=== PATIENT | male | born 1970 | race Caucasian/White ===

== ENCOUNTER 2016-07-31 11:01 | Emergency (ER) ==
[2016-07-31] MEDS ORDERED: ASPIRIN PO STA (11:09)
[2016-07-31] MEDS ORDERED: LOPRESSOR IV ONE (11:11)
[2016-07-31] MEDS ORDERED: LOPRESSOR ONE (11:12)
--- NOTE | 2016-07-31 11:15 | EKG Report ---
Test Performed on : 07/31/2016 11:03:48 AM Test Reason : SVT Blood Pressure : / mmHG Vent. Rate : 139 BPM Atrial Rate : 139 BPM P-R Int : 136 ms QRS Dur : 074 ms QT Int : 272 ms P-R-T Axes : 057 027 070 degrees QTc Int : 413 ms Sinus tachycardia. Septal infarct , age undetermined Abnormal ECG No previous ECGs available Unconfirmed Result
[2016-07-31 11:16] LABS: MANUAL DIFF NEEDED? NO
--- NOTE | 2016-07-31 11:32 | PROVIDER DOCUMENTATION ---
HPI-Cardiac General - General Source: patient - History of Present Illness-Cardiac Onset/Duration: 4 days ago Timing: still present <Chata Jiang - Last Filed: 07/31/16 13:54> <Marcellus Kumar - Last Filed: 07/31/16 15:02> - General Chief Complaint: Palpitations Stated Complaint: SVT Time Seen by Provider: 07/31/16 11:28 Allergies/Adverse Reactions: Patient Allergies Allergy/AdvReac Type Severity Reaction Status Date / Time No Known Allergies Allergy Verified 07/31/16 11:09 Home Medications: Home Medication List Medication Instructions Recorded Confirmed Last Taken Type Metformin HCl [Metformin HCl ER] 500 mg PO BID #60 tab.er.24h 07/31/16 Unknown Rx Metoprolol Succinate 50 mg PO DAILY #30 tab.er.24h 07/31/16 Unknown Rx Ranitidine [Zantac] 150 mg PO DAILY 07/31/16 07/31/16 Unknown History - History of Present Illness-Cardiac Nature of Presenting Problem: 46 year old male presents to the ER with complaint of rapid heart rate. Pt states he has been in a fishing [place] for the last few days with little sleep. Pt states he has a hx of rapid heart rate. Denies chest pain. (Chata Jiang) Review of Systems - Adult - REVIEW OF SYSTEMS - ADULT Constitutional: denies: chills, fever Eyes: reports: no symptoms reported Ears, Nose, Mouth & Throat: reports: no symptoms reported Cardiovascular: reports: palpitations. denies: chest pain Respiratory: reports: no symptoms reported Gastrointestinal: reports: no symptoms reported Genitourinary: reports: no symptoms reported Musculoskeletal: reports: no symptoms reported Integumentary: reports: no symptoms reported Neurological: reports: no symptoms reported Psychiatric: reports: no symptoms reported Endocrine: reports: no symptoms reported Hematologic/Lymphatic: reports: no symptoms reported Allergic/Immunologic: reports: no symptoms reported All Other Systems: Reviewed and Negative <Chata Jaing - Last Filed: 07/31/16 13:54> Past History - Adult - PAST MEDICAL HISTORY-ADULT Review of Records: reports: Nursing Assessment Review, Medications Reviewed - IMMUNIZATION STATUS Childhood Immunizations: See Nurse Assessment Flu Vaccine: See Nurse Assessment <Chata Jiang - Last Filed: 07/31/16 13:54> Physical Exam-General - CONSTITUTIONAL General Appearance: alert, no apparent distress - EYES Eyes: PERRL/EOMI, pink conjunctivae - HEAD, EARS, NOSE, MOUTH & THROAT HENMT: normocephalic/atraumatic, moist mucous membranes - NECK Neck: supple, normal inspection - RESPIRATORY Respiratory: lungs clear, normal breath sounds - CARDIOVASCULAR Cardiovascular: no edema, tachycardia - MUSCULOSKELETAL Back Exam: no CVA tenderness, no vertebral tenderness Extremity: normal range of motion, non-tender - SKIN Integumentary: normal color, warm/dry - NEUROLOGIC Neurologic: grossly normal, no motor/sensory deficits - PSYCHIATRIC Psych/Mental Status: normal mood/affect, normal thought content, normal thought process, oriented x 3 <Chata Jiang - Last Filed: 07/31/16 13:54> Progress - EKG 1 Time of EKG reading by physician:: 11:03 EKG Read and Signed by:: Marcellus Kumar EKG Interpretation (*Must complete 3 of following elements*): Abnormal Rate: 139 Rhythm: sinus tachycardia 2 Time of EKG reading by physician:: 13:24 EKG Read and Signed by:: Marcellus Kumar EKG Interpretation (*Must complete 3 of following elements*): Abnormal Rate: 102 Rhythm: sinus tachycardia [place]: normal <Chata Jiang - Last Filed: 07/31/16 13:54> <Marcellus Kumar - Last Filed: 07/31/16 15:02> - PLAN OF CARE/RESULTS Progress/Plan/Lab Results: Laboratory Tests 07/31/16 07/31/16 07/31/16 11:08 11:08 11:08 WBC RBC Hgb Hct MCV MCH MCHC RDW Std Deviation Plt Count MPV Immature Gran % (Auto) Neut % (Auto) Lymph % (Auto) [place] % (Auto) Eos % (Auto) Baso % (Auto) Immature Gran # (Auto) Neut # (Auto) Lymph # (Auto) [place] # (Auto) Eos # (Auto) Baso # (Auto) PT INR APTT (Factor Assay) D-Dimer Sodium 134 L Potassium 4.2 Chloride 97 L Carbon Dioxide 20 L Anion Gap 16 BUN 8 Creatinine 0.7 Estimated GFR/1.73 m2 > 60 BUN/Creatinine Ratio 11 Glucose 372 H Calculated Osmolality 282 Calcium 9.8 Magnesium 1.9 Total Bilirubin 0.70 AST 25 ALT 23 Alkaline Phosphatase 117 Creatine Kinase 124 Troponin T < 0.010 Ncz-L-Jzjzkhnggeb Pept 59 Total Protein 8.2 Albumin 4.7 Globulin 4.0 Albumin/Globulin Ratio 1.0 TSH 07/31/16 07/31/16 07/31/16 11:08 11:08 11:08 WBC 12.35 H RBC 6.42 H Hgb 18.4 H Hct 52.8 H MCV 82.2 MCH 28.7 MCHC 34.8 RDW Std Deviation 12.7 Plt Count 215 MPV 10.6 H Immature Gran % (Auto) 0.4 Neut % (Auto) 66.1 Lymph % (Auto) 23.7 [place] % (Auto) 7.6 Eos % (Auto) 1.5 Baso % (Auto) 0.7 Immature Gran # (Auto) 0.05 H Neut # (Auto) 8.15 H Lymph # (Auto) 2.93 [place] # (Auto) 0.94 H Eos # (Auto) 0.19 Baso # (Auto) 0.09 PT 13.8 INR 1.03 APTT (Factor Assay) 30.9 D-Dimer Sodium Potassium Chloride Carbon Dioxide Anion Gap BUN Creatinine Estimated GFR/1.73 m2 BUN/Creatinine Ratio Glucose Calculated Osmolality Calcium Magnesium Total Bilirubin AST ALT Alkaline Phosphatase Creatine Kinase Troponin T Usw-D-Oknvaoycllp Pept Total Protein Albumin Globulin Albumin/Globulin Ratio TSH 1.37 07/31/16 11:08 WBC RBC Hgb Hct MCV MCH MCHC RDW Std Deviation Plt Count MPV Immature Gran % (Auto) Neut % (Auto) Lymph % (Auto) [place] % (Auto) Eos % (Auto) Baso % (Auto) Immature Gran # (Auto) Neut # (Auto) Lymph # (Auto) [place] # (Auto) Eos # (Auto) Baso # (Auto) PT INR APTT (Factor Assay) D-Dimer 0.30 Sodium Potassium Chloride Carbon Dioxide Anion Gap BUN Creatinine Estimated GFR/1.73 m2 BUN/Creatinine Ratio Glucose Calculated Osmolality Calcium Magnesium Total Bilirubin AST ALT Alkaline Phosphatase Creatine Kinase Troponin T Tsj-V-Qeldndgepvj Pept Total Protein Albumin Globulin Albumin/Globulin Ratio TSH Vital Signs - 24 hr 07/31/16 11:03 Pulse Rate 140 H Respiratory 20 Rate Blood Pressure 154/94 O2 Sat by Pulse 98 Oximetry (Chata Jiang) Departure <Chata Jiang - Last Filed: 07/31/16 13:54> - Departure Time of Disposition Order: 14:59 Certified Medical Emergency: Emergent <Marcellus Kumar - Last Filed: 07/31/16 15:02> - Departure DIAGNOSIS: Inappropriate sinus tachycardia Diabetes mellitus Qualifiers: Diabetes mellitus type: type 2 Diabetes mellitus complication status: with hyperglycemia Disposition: HOME 01 Condition: Stable Additional Instructions: ED Follow Up Instructions: You have been treated by a care provider in the Emergency Department. These instructions are being provided to you so you can have an understanding of how to care for yourself upon discharge. Upon discharge from the Emergency Department, you are responsible for making arrangements for follow-up care by a physician of your choice. Take all prescribed medications as directed. Return to the Emergency Department immediately for any new or worsening symptoms. You may call the Physician Referral phone number at [phone] to obtain a list of Physicians who are taking new patients. Prescriptions: Metformin HCl [Metformin HCl ER] 500 mg PO BID #60 tab.er.24h Metoprolol Succinate 50 mg PO DAILY #30 tab.er.24h Referrals: None,PCP [Primary Care Provider] - Attestation - Scribe Verification/Attestation Scribe:: Chtaa Jiang Acting as Scribe for:: Marcellus Kumar Scribe documention review:: This chart was documented by a scribe and accurately reflects the service the provider performed and the decisions made by the provider. <Chata Jiang - Last Filed: 07/31/16 13:54> Physician Attestation
[2016-07-31 11:33] LABS: BASO% 0.7 % (0.0-0.8); EOS# 0.19 X1000 (0.0-0.7); EOS% 1.5 % (0.0-10.0); HEMATOCRIT 52.8 % (42.0-52.0); HEMOGLOBIN 18.4 g/dL (14.0-18.0); IMM GRAN# 0.05 X1000 (0.0-0.04); IMM GRAN% 0.4 % (0.0-0.5); LYMPH# 2.93 X1000 (1.2-3.4); LYMPH% 23.7 % (20.5-51.1); MCH 28.7 PG (27-31); MCHC 34.8 g/dL (33-37); MCV 82.2 FL (81-99); MONO# 0.94 X1000 (0.11-0.59); MONO% 7.6 % (1.7-9.3); MPV 10.6 FL (7.4-10.4); NEUT% 66.1 % (42.2-75.2); PLT 215 X1000 (130-400); RBC 6.42 XMIL (4.7-6.1)
[2016-07-31 11:42] LABS: INR 1.03 (0.86-1.15); PROTIME 13.8 Seconds (12.1-15.5)
[2016-07-31 11:43] LABS: PTT PL 30.9 Seconds (22.6-43.9)
[2016-07-31 11:47] LABS: AGAP 16; ALBUMIN 4.7 g/dL (3.5-5.0); ALKALINE PHOSPHATASE 117 U/L (32-122); BUN 8 mg/dL (8-22); CALCIUM 9.8 mg/dL (8.8-10.2); CHLORIDE 97 mmol/L (98-107); CK PROFILE 124 U/L (24-204); COSMO 282; GOT 25 U/L (10-34); GPT 23 U/L (10-44); MAGNESIUM 1.9 mg/dL (1.5-2.7); POTASSIUM 4.2 mmol/L (3.5-5.1); SODIUM 134 mmol/L (136-145); TCO2 20 mmol/L (25-35); TOTAL PROTEIN 8.2 g/dL (6.3-8.3)
--- NOTE | 2016-07-31 13:34 | EKG Report ---
Test Performed on : 07/31/2016 1:24:44 PM Test Reason : repeat Blood Pressure : / mmHG Vent. Rate : 102 BPM Atrial Rate : 102 BPM P-R Int : 162 ms QRS Dur : 078 ms QT Int : 334 ms P-R-T Axes : 059 012 056 degrees QTc Int : 435 ms Sinus tachycardia. Anteroseptal infarct (cited on or before 31-JUL-2016) Abnormal ECG When compared with ECG of 31-JUL-2016 11:03, (Unconfirmed) No significant change was found Unconfirmed Result
[2016-07-31 15:10] VITALS: BP 133/61
--- NOTE | 2016-07-31 15:34 | Diag Imaging Result Document ---
PROCEDURE NAME: CHEST-2 VIEWS - 07/31/2016 CHEST, 2 VIEWS: COMPARISON: No comparison exam. FINDINGS: Heart size is normal. There are small granulomas and calcified hilar lymph nodes from old granulomatous disease. There is no consolidation, vascular congestion, pleural effusion, or pneumothorax identified. There is thoracic spondylosis noted. IMPRESSION: No evidence of acute disease.
== END 2016-07-31 15:08 | disposition home or self-care (01) ==
LOC: P.ED 11:01
DX: R00.0 Tachycardia, unspecified (principal); E11.65 Type 2 diabetes mellitus with hyperglycemia; R94.31 Abnormal electrocardiogram [ECG] [EKG]; R00.2 Palpitations
CPT/HCPCS: 71020; 80053; 82550; 83735; 83880; 84443; 84484; 85025; 85379; 85610; 85730; 93005; 96374